=== PATIENT | male | born 1995 | race Asian ===

== ENCOUNTER 2016-06-16 09:04 | Emergency (ER) | payer OTHER ==
[~2016-06-16] VITALS: Ht 177.8 cm; Wt 50.8 kg
[~2016-06-16 09:04] MED LIST: PHENERGAN 25 MG25 M1 PO
[2016-06-16] MEDS ORDERED: IBUPROFEN 800800 MG PO (09:26)
[2016-06-16 10:05] VITALS: BP 100/54
== END 2016-06-16 10:06 | disposition home or self-care (01) ==
LOC: ER 09:04
DX: S46.811A Strain of other muscles, fascia and tendons at shoulder and upper arm level, right arm, initial encounter (principal); F17.210 Nicotine dependence, cigarettes, uncomplicated; X58.XXXA Exposure to other specified factors, initial encounter; Y93.89 Activity, other specified; Y92.89 Other specified places as the place of occurrence of the external cause; Y99.9 Unspecified external cause status

== ENCOUNTER 2018-06-12 13:35 | Emergency (ER) | payer OTHER ==
[~2018-06-12] VITALS: Ht 180.3 cm; Wt 52.2 kg
[2018-06-12 13:35] VITALS: BP 112/70
[~2018-06-12 13:35] MED LIST changes: +IBUPROFEN 800800 MG PO; +PREDNISONE 20 M20 M1 PO; +SENNA8.6 MG PO; +VENTOLIN HFA 1818 GM INH
[2018-06-12] MEDS ORDERED: NORFLEX100 MG PO (14:03)
[2018-06-12] MEDS ORDERED: NAPROSYN500 MG PO (14:03)
== END 2018-06-12 14:14 | disposition home or self-care (01) ==
LOC: ER 13:35
DX: S39.012A Strain of muscle, fascia and tendon of lower back, initial encounter (principal); M54.41 Lumbago with sciatica, right side; F17.210 Nicotine dependence, cigarettes, uncomplicated; X50.0XXA Overexertion from strenuous movement or load, initial encounter; Y92.89 Other specified places as the place of occurrence of the external cause; Y93.89 Activity, other specified; Y99.8 Other external cause status